=== PATIENT | male | born 1975 | race Caucasian/White ===

== ENCOUNTER 2024-02-12 18:10 | Emergency (ER) | payer OTHER ==
--- NOTE | 2024-02-12 18:36 | ED ---
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 which never he never grew out of and he continues to smoke or to stay underlying COPD with shortness of breath Patient ran out of his rescue inhaler when he began to have exact exacerbation today Patient improved on arrival to the ER MD Complaint: shortness of breath, cough, "asthma attack" -: hour(s) Severity: moderate Severity scale (1-10): 7 Consistency: constant, now resolved, other (Improved) Improves With: bronchodilators (EMS) Worsens With: exertion Known History Of: COPD, asthma Context: recent URI, anxiety, recent illness Associated Symptoms: denies other symptoms - Related Data Home Medications Medication Instructions Recorded Confirmed diazePAM [Valium] 5 mg PO QID 10/27/14 01/01/15 oxyCODONE-APAP 5-325MG [Percocet 1 each PO Q6HR PRN 10/27/14 01/01/15 5-325] Previous Rx's Medication Instructions Recorded Hydrocodone/Acetaminophen [[place] 1 each PO Q6HR PRN #10 tab 10/27/14 5-325] methylPREDNISolone [Medrol] 1 pack PO DIRECTED #1 tab.ds.pk 10/27/14 Amoxicillin/Potassium Clav 1 each PO Q12HR #20 tab 01/01/15 [Augmentin 875-125 Tablet] Allergies Allergy/AdvReac Type Severity Reaction Status Date / Time ketorolac tromethamine Allergy Rash/Hives Verified 02/12/24 18:34 [From Toradol] kiwi Allergy Anaphylaxis Verified 02/12/24 18:34 prochlorperazine edisylate Allergy Unknown Verified 02/12/24 18:34 [From Compazine] prochlorperazine maleate Allergy Unknown Verified 02/12/24 18:34 [From Compazine] Review of Systems ROS Statement: Those systems with pertinent positive or pertinent negative responses have been documented in the HPI. ROS Other: All systems not noted in ROS Statement are negative. Past Medical History Past Medical History: Seizure Disorder Additional Past Medical History / Comment(s): blood clots in bilateral arms (2008 and 2006) brain tumor, migraines, neck pain History of Any Multi-Drug Resistant Organisms: None Reported Past Surgical History: No Surgical Hx Reported Additional Past Surgical History / Comment(s): Patient states he had surgery to both of his thumbs Past Anesthesia/Blood Transfusion Reactions: No Reported Reaction Past Psychological History: ADD/ADHD, Anxiety, Bipolar, Depression Smoking Status: Current every day smoker Past Alcohol Use History: None Reported Past Drug Use History: Marijuana - Past Family History Father Family Medical History: Hypertension Mother Additional Family Medical History / Comment(s): Bipolar Sister(s) Additional Family Medical History / Comment(s): Blood clots. General Exam General appearance: alert, in no apparent distress Head exam: Present: atraumatic, normocephalic, normal inspection Eye exam: Present: normal appearance, PERRL, EOMI. Absent: scleral icterus, conjunctival injection, periorbital swelling ENT exam: Present: normal exam, mucous membranes moist Neck exam: Present: normal inspection. Absent: tenderness, meningismus, lymphadenopathy Respiratory exam: Present: normal lung sounds bilaterally. Absent: respiratory distress, wheezes, rales, rhonchi, stridor Cardiovascular Exam: Present: regular rate, normal rhythm, normal heart sounds. Absent: systolic murmur, diastolic murmur, rubs, gallop, clicks GI/Abdominal exam: Present: soft, normal bowel sounds. Absent: distended, tenderness, guarding, rebound, rigid Extremities exam: Present: normal inspection, full ROM, normal capillary refill. Absent: tenderness, pedal edema, joint swelling, calf tenderness Back exam: Present: normal inspection Neurological exam: Present: alert, oriented X3, CN II-XII intact Psychiatric exam: Present: normal affect, normal mood Skin exam: Present: warm, dry, intact, normal color. Absent: rash Course Vital Signs 02/12/24 02/12/24 18:11 18:50 Temperature 97.4 F L Pulse Rate 80 86 Respiratory 18 Rate Blood Pressure 98/78 O2 Sat by Pulse 96 Oximetry - Reevaluation(s) Reevaluation #1: 02/12/24 19:00 Medical records reviewed Reevaluation #2: 02/12/24 19:00 Patient symptoms improved Reevaluation #3: 02/12/24 19:00 Patient informed of results questions answered Reevaluation #4: Was pt. sent in by a medical professional or institution (, JOEY, COLLEGE SPORTS ASSISTANT, urgent care, hospital, or fdc...) When possible be specific @ -no Did you speak to anyone other than the patient for history (EMS, parent, family, police, friend...)? What history was obtained from this source @ -no Did you review nursing and triage notes (agree or disagree)? Why? @ -agree Are old charts reviewed (outside hosp., previous admission, EMS record, old EKG, old radiological studies, urgent care reports/EKG's, fdc records)? Report findings @ -yes Differential Diagnosis (chest pain, altered mental status, abdominal pain women, abdominal pain men, vaginal bleeding, weakness, fever, dyspnea, syncope, headache, dizziness, GI bleed, back pain, seizure, CVA, palpatations, mental health, musculoskeletal)? @ -prior EKG interpreted by me (3pts min.). @ -yes X-rays interpreted by me (1pt min.). @ -yes negative for acute disease CT interpreted by me (1pt min.). @ -no U/S interpreted by me (1pt. min.). @ -no What testing was considered but not performed or refused? (CT, X-rays, U/S, labs)? Why? @ -none What meds were considered but not given or refused? Why? @ -none Did you discuss the management of the patient with other professionals (professionals i.e. , JOEY, COLLEGE SPORTS ASSISTANT, lab, RT, psych nurse, social worker psychiatric, radiological engineer, teacher, weapons officer, field nurse case manager)? Give summary @ -no Was smoking cessation discussed for >3mins.? @ -no Was critical care preformed (if so, how long)? @ -no Were there social determinants of health that impacted care today? How? (Homelessness, low income, unemployed, alcoholism, drug addiction, transportation, low edu. Level, literacy, decrease access to med. care, [facility], rehab)? @ -none Was there de-escalation of care discussed even if they declined (Discuss DNR or withdrawal of care, Hospice)? DNR status @ -no What co-morbidities impacted this encounter? (DM, HTN, Smoking, COPD, CAD, Cancer, CVA, ARF, Chemo, Hep., AIDS, mental health diagnosis, sleep apnea, morbid obesity)? @ -none Was patient admitted / discharged? Hospital course, mention meds given and route, prescriptions, significant lab abnormalities, going to OR and other pertinent info. @ - Undiagnosed new problem with uncertain prognosis? @ -no Drug Therapy requiring intensive monitoring for toxicity (Heparin, Nitro, Insulin, Cardizem)? @ -no Were any procedures done? @ -no Diagnosis/symptom? @ - Acute, or Chronic, or Acute on Chronic? @ -Acute Uncomplicated (without systemic symptoms) or Complicated (systemic symptoms)? @ -Complicated Side effects of treatment? @ -no Exacerbation, Progression, or Severe Exacerbation? @ -exacerbation Poses a threat to life or bodily function? How? (Chest pain, [place], [place], pneumonia, PE, COPD, DKA, ARF, appy, cholecystitis, CVA, Diverticulitis, Homicidal, Suicidal, threat to staff... and all critical care pts) @ -yes Reevaluation #5: Differential Dyspnea: Coronary syndrome, arrhythmia, tamponade, asthma, COPD, pulmonary embolism, pneumonia, pneumothorax, pulmonary effusion, anaphylaxis, diabetic ketoacidosis, flailed chest, pulmonary contusion, diaphragmatic rupture, anemia, neuromuscular, this is not meant to be an all-inclusive list. Medical Decision Making - Medical Decision Making 48 female with asthma exacerbation significant, although much improved with breathing treatments per EMS 2 breathing treatments here in the ER patient given steroids refilled on rescue inhaler and can be discharged home - Radiology Data Radiology results: report reviewed (Chest x-ray is negative for acute disease), image reviewed Disposition Clinical Impression: Acute exacerbation of chronic obstructive pulmonary disease, Asthma with acute exacerbation Disposition: HOME SELF-CARE Condition: Good Instructions (If sedation given, give patient instructions): Asthma (ED), Bronchospasm (ED) Is patient prescribed a controlled substance at d/c from ED?: No Referrals: None,Stated [Primary Care Provider] - 1-2 days Time of Disposition: 19:30
[2024-02-12] MEDS: IPRATROPIUM-ALBUTEROL 3 ML NEB INHALATION STA (18:50)
[2024-02-12] MEDS: DEXAMETHASONE SOD PHOSPHATE 10 MG/ML 1 ML VIAL IM STA (19:41)
[2024-02-12] MEDS: AZITHROMYCIN 500 MG TAB PO STA (19:48)
[2024-02-12] MEDS: predniSONE 50 MG TAB PO STA (19:48)
[2024-02-12] MEDS: MORPHINE SULFATE 2 MG/ML SYRINGE IVP STA (19:50)
[2024-02-12] MEDS: DEXAMETHASONE SOD PHOSPHATE 10 MG/ML 1 ML VIAL IVP STA (19:50)
[2024-02-12] MEDS: SODIUM CHLORIDE 0.9% 500 ML 500 ML IV STA (19:50)
[2024-02-12 19:54] VITALS: TEMP 97.1
--- NOTE | 2024-02-12 20:05 | XR ---
EXAMINATION TYPE: XR chest 1V portable DATE OF EXAM: 02/12/2024 COMPARISON: 12/08/2013 HISTORY: Shortness of breath TECHNIQUE: 2 views of the chest submitted. FINDINGS: There is hyperinflation noted. There is no focal air space opacity, pleural effusion, or pn eumothorax seen. The cardiac silhouette size is within normal limits. The osseous structures are i ntact. IMPRESSION: No acute process. [facility], , 02/12/2024 8:03 PM
[2024-02-12 20:26] VITALS: BP 105/84; PULSE 85; RESP 16
== END 2024-02-12 20:26 | disposition home or self-care (01) ==
LOC: EC 18:10
DX: J44.1 Chronic obstructive pulmonary disease with (acute) exacerbation (principal); F17.200 Nicotine dependence, unspecified, uncomplicated; Z88.8 Allergy status to other drugs, medicaments and biological substances; Z91.018 Allergy to other foods
CPT/HCPCS: 94640; 71045; 99285; 96374; 96375; J1100; J2270; J7512

== ENCOUNTER 2024-02-18 02:32 | Emergency (ER) | payer OTHER ==
--- NOTE | 2024-02-18 02:54 | ED ---
General Adult HPI <Hero Gonzalez - Last Filed: 02/18/24 08:20> - General Source: EMS Mode of arrival: EMS <Silvai Wheeler - Last Filed: 02/26/24 17:16> - General Chief complaint: Shortness of Breath Stated complaint: Difficulty Breathing Time Seen by Provider: 02/18/24 02:37 - History of Present Illness Initial comments: This is a 48 y/o male hx asthma, current smoker, history of prior DVT, tumor, not on anticoagulation presenting for shortness of breath. Patient states that he was here about 5 days ago for similar complaint and did not receive a prescription for rescue inhaler which he feels he needs. Symptoms did briefly improve after recent ED visit however worsened in the last hour. States he is allergic to cockroaches and he has them in his apartment, suspects this is cause of this asthma exacerbation. Of note patient also endorses sharp upper left- sided chest pain. Endorses nonproductive cough, denies sputum production or hemoptysis, denies recent travel surgeries or hospitalizations. Denies fevers, lower extremity swelling. No hx prior [place]. (Silvia) - Related Data Home Medications Medication Instructions Recorded Confirmed diazePAM [Valium] 5 mg PO QID 10/27/14 01/01/15 oxyCODONE-APAP 5-325MG [Percocet 1 each PO Q6HR PRN 10/27/14 01/01/15 5-325] Previous Rx's Medication Instructions Recorded Hydrocodone/Acetaminophen [[place] 1 each PO Q6HR PRN #10 tab 10/27/14 5-325] methylPREDNISolone [Medrol] 1 pack PO DIRECTED #1 tab.ds.pk 10/27/14 Amoxicillin/Potassium Clav 1 each PO Q12HR #20 tab 01/01/15 [Augmentin 875-125 Tablet] Azithromycin [Zithromax] 500 mg PO DAILY #5 tab 02/12/24 predniSONE 50 mg PO DAILY #5 tab 02/12/24 Albuterol Sulfate [Ventolin HFA] 1 - 2 puff INHALATION Q6H PRN 30 02/18/24 Days #1 each predniSONE [Deltasone] 40 mg PO DAILY 5 Days #8 tab 02/18/24 Allergies Allergy/AdvReac Type Severity Reaction Status Date / Time ketorolac tromethamine Allergy Rash/Hives Verified 02/18/24 02:34 [From Toradol] kiwi Allergy Anaphylaxis Verified 02/18/24 02:34 prochlorperazine edisylate Allergy Unknown Verified 02/18/24 02:34 [From Compazine] prochlorperazine maleate Allergy Unknown Verified 02/18/24 02:34 [From Compazine] Review of Systems ROS Other: All systems not noted in ROS Statement are negative. <Hero Gonzalez - Last Filed: 02/18/24 08:20> ROS Other: All systems not noted in ROS Statement are negative. <Silvia Wheeler - Last Filed: 02/26/24 17:16> ROS Statement: Those systems with pertinent positive or pertinent negative responses have been documented in the HPI. Past Medical History Past Medical History: Seizure Disorder Additional Past Medical History / Comment(s): blood clots in bilateral arms (2008 and 2006) brain tumor, migraines, neck pain History of Any Multi-Drug Resistant Organisms: None Reported Past Surgical History: No Surgical Hx Reported Additional Past Surgical History / Comment(s): Patient states he had surgery to both of his thumbs Past Anesthesia/Blood Transfusion Reactions: No Reported Reaction Past Psychological History: ADD/ADHD, Anxiety, Bipolar, Depression Smoking Status: Current every day smoker Past Alcohol Use History: None Reported, Occasional Past Drug Use History: Marijuana - Past Family History Father Family Medical History: Hypertension Mother Additional Family Medical History / Comment(s): Bipolar Sister(s) Additional Family Medical History / Comment(s): Blood clots. <Silvia Wheeler - Last Filed: 02/26/24 17:16> General Exam <Silvia Wheeler - Last Filed: 02/26/24 17:16> - General Exam Comments Initial Comments: PE: CONSTITUTIONAL: Mild distress secondary to difficulty in breathing, mildly ill- appearing, awake alert and nontoxic SKIN: Warm, dry, no jaundice, hives or petechiae EYES: Pupils are equally round, extraocular movements intact without nystagmus, clear conjunctiva, non-icteric sclera HENT: Normocephalic, atraumatic, moist mucus membranes, oropharynx clear without exudates NECK: , Full range of motion, normal appearance PULMONARY: Decreased air movement in the bilateral lung vega, scant wheezes in the periphery, no rhonchi rales or crackles, no accessory muscle use or stridor, mild tachypnea CARDIOVASCULAR: Tachycardia, regular rhythm, normal S1 and S2. No appreciated m urmurs, rubs or gallops. Strong radial pulses with intact distal perfusion. No lower extremity edema GASTROINTESTINAL: Soft, active bowel sounds throughout, non-tender, non- distended, no palpable masses, no rebound or guarding. No hepatosplenomegaly MUSCULOSKELETAL: Extremities have no gross deformity, no edema, redness, or swelling. No calf swelling NEUROLOGIC:_a/o x 3, GCS 15, normal mentation and speech. Moves all extremities x 4 without motor or sensory deficit PSYCHIATRIC:_normal mood and affect, thought process is clear and linear (Silvia Wheeler) Course <Hero Gonzalez - Last Filed: 02/18/24 08:20> Vital Signs 02/18/24 02/18/24 02/18/24 02:34 02:42 03:12 Temperature 98.7 F Pulse Rate 96 93 Respiratory 18 18 Rate Blood Pressure 104/65 O2 Sat by Pulse 98 Oximetry 02/18/24 02/18/24 02/18/24 03:49 04:13 05:39 Temperature Pulse Rate 89 98 92 Respiratory 17 Rate Blood Pressure 106/62 O2 Sat by Pulse 98 Oximetry 02/18/24 02/18/24 02/18/24 07:00 07:34 07:56 Temperature 97.8 F Pulse Rate 82 85 90 Respiratory 17 16 16 Rate Blood Pressure 107/65 107/65 O2 Sat by Pulse 98 97 Oximetry 02/18/24 08:38 Temperature 97 F L Pulse Rate 88 Respiratory 16 Rate Blood Pressure 104/71 O2 Sat by Pulse 99 Oximetry - Reevaluation(s) Reevaluation #1: 02/18/24 08:20 2 reevaluated after signout, patient states that he is feeling significantly improved. He is eager for discharge. He has good air entry bilaterally with stable vitals. No respiratory distress. (Hero Gonzalez) EKG Findings - EKG Comments: EKG Findings:: Sinus rhythm, rate 92 bpm, MA interval 137 ms, QRS duration 110 ms, QT/QTc 376/426 ms, normal axis, no ST elevations or depressions, no arrhythmia, no Brugada pattern, no delta waves <Silvia Wheeler - Last Filed: 02/26/24 17:16> Medical Decision Making - Lab Data Result diagrams: 02/18/24 02:54 02/18/24 02:54 <Hero Gonzalez - Last Filed: 02/18/24 08:20> - Lab Data Result diagrams: 02/18/24 02:54 02/18/24 02:54 <Silvia Wheeler - Last Filed: 02/26/24 17:16> - Medical Decision Making Was pt. sent in by a medical professional or institution (, PA, SUPPORT DBA, urgent care, hospital, or usp...) When possible be specific @ -No Did you speak to anyone other than the patient for history (EMS, parent, family, police, friend...)? What history was obtained from this source @ -No Did you review nursing and triage notes (agree or disagree)? Why? @ -I reviewed and agree with nursing and triage notes Were old charts reviewed (outside hosp., previous admission, EMS record, old EKG, old radiological studies, urgent care reports/EKG's, usp records)? Report findings Medical records reviewed, patient here on 02/12/2024 for similar complaint, discharged on steroids Differential Diagnosis (chest pain, altered mental status, abdominal pain women, abdominal pain men, vaginal bleeding, weakness, fever, dyspnea, syncope, headache, dizziness, GI bleed, back pain, seizure, CVA, palpatations, mental health, musculoskeletal)? @Differential Dyspnea: Coronary syndrome, arrhythmia, tamponade, asthma, COPD, pulmonary embolism, pneumonia, pneumothorax, pulmonary effusion, anemia, neuromuscular, this is not meant to be an all-inclusive list. EKG interpreted by me (3pts min.). @ -As above X-rays interpreted by me (1pt min.). @ -None done CT interpreted by me (1pt min.). @ -No visible PE, no consolidations or pleural effusions U/S interpreted by me (1pt. min.). @ -None done What testing was considered but not performed or refused? (CT, X-rays, U/S, labs)? Why? @ -None What meds were considered but not given or refused? Why? @ -None Did you discuss the management of the patient with other professionals (professionals i.e. , PA, SUPPORT DBA, lab, RT, psych nurse, marriage and family social worker, department clinician, teacher, resident medical officer, case briefer)? Give summary @ -No Was smoking cessation discussed for >3mins.? @yes Was critical care preformed (if so, how long)? @ yes 35 minutes Were there social determinants of health that impacted care today? How? (Homelessness, low income, unemployed, alcoholism, drug addiction, transportation, low edu. Level, literacy, decrease access to med. care, long term, rehab)? @Decreased access to medical care Was there de-escalation of care discussed even if they declined (Discuss DNR or withdrawal of care, Hospice)? @ -No What co-morbidities impacted this encounter? (DM, HTN, Smoking, COPD, CAD, Cancer, CVA, ARF, Chemo, Hep., AIDS, mental health diagnosis, sleep apnea, morbid obesity)? Asthma, prior DVT, smoker Was patient admitted / discharged? Hospital course, mention meds given and route, prescriptions, significant lab abnormalities, going to OR and other pertinent info. @ -Signed out to oncoming physician, Dr. Gonzalez pending final nebulizer treatment and reassessment- Patient is a 48-year-old male with past medical history of asthma, prior DVT not on anticoagulation, brain tumor, presenting today for shortness of breath recently exacerbated in the last hour. Patient mildly tachypneic on arrival in mild distress secondary to tachypnea nontoxic-appearing. Decreased air movement the bilateral lung vega with scant wheezes in the periphery. Patient's exam is most consistent with asthma exacerbation secondary to known trigger and decreased access to medical care preventing him from having an inhaler. He also notes sharp left upper left sided CP. Due to history of prior DVT and Well's score >4, I will obtain a CT PE study and comprehensive labs at this time patient will receive [id number] nebulizer treatments Toradol and Tylenol for his chest pain. Patient agreeable plan of care. On reassessment patient endorses improvement in his shortness of breath, improved aeration bilaterally but still with some wheezes. Ordered additional nebulizer to be performed prior to d/c. CP improved with above mediciations. Labs overall reassuring. CT PE study showed no central or lobar pulmonary embolus but evaluation of segmental and subsegmental pulmonary artery branches are limited by suboptimal contrast opacification, no consolidations, pleural effusion pulmonary edema and mild emphysematous changes. As patient's exam is most consistent with asthma exacerbation and he has no signs of right heart strain on labs or imaging, pain and shortness of breath improved with the above interventions IV very low suspicion for PE at this time and anticipate discharge. Updated patient to findings and plan of care. Patient is agreeable plan. Patient signed out to oncoming physician pending repeat nebulizer treatment and reassessment. Prescriptions have been sent for a rescue inhaler and prednisone to patient's pharmacy. Undiagnosed new problem with uncertain prognosis? @ -No Drug Therapy requiring intensive monitoring for toxicity (Heparin, Nitro, Insulin, Cardizem)? @ -No Were any procedures done? @ -No Diagnosis/symptom? @ -Asthma exacerbation Acute, or Chronic, or Acute on Chronic? @Acute Uncomplicated (without systemic symptoms) or Complicated (systemic symptoms)? @Complicated Side effects of treatment? @ -No Exacerbation, Progression, or Severe Exacerbation? @ -No Poses a threat to life or bodily function? How? (Chest pain, [place], [place], pneumonia, PE, COPD, DKA, ARF, appy, cholecystitis, CVA, Diverticulitis, Homicidal, Suicidal, threat to staff... and all critical care pts) @ -Yes, if left untreated could lead to acute respiratory failure (Silvia Wheeler) - Lab Data Lab Results 02/18/24 02/18/24 02/18/24 Range/Units 02:54 02:54 02:54 WBC 8.4 (3.8-10.6) k/uL RBC 5.44 (4.30-5.90) m/uL Hgb 15.8 (13.0-17.5) gm/dL Hct 50.1 (39.0-53.0) % MCV 92.2 (80.0-100.0) fL MCH 29.1 (25.0-35.0) pg MCHC 31.6 (31.0-37.0) g/dL RDW 12.6 (11.5-15.5) % Plt Count 336 (150-450) k/uL MPV 7.0 Neutrophils % 36 % Lymphocytes % 51 % Monocytes % 5 % Eosinophils % 5 % Basophils % 1 % Neutrophils # 3.0 (1.3-7.7) k/uL Lymphocytes # 4.3 (1.0-4.8) k/uL Monocytes # 0.5 (0-1.0) k/uL Eosinophils # 0.4 (0-0.7) k/uL Basophils # 0.1 (0-0.2) k/uL PT 12.1 (10.0-12.5) sec INR 1.1 (<1.2) APTT 22.8 (22.0-30.0) sec Sodium 141 (137-145) mmol/L Potassium 4.5 (3.5-5.1) mmol/L Chloride 106 (98-107) mmol/L Carbon Dioxide 29 (22-30) mmol/L Anion Gap 6 mmol/L BUN 23 H (9-20) mg/dL Creatinine 0.80 (0.66-1.25) mg/dL Est GFR (CKD-EPI)AfAm >90 (>60 ml/min/1.73 sqM) Est GFR (CKD-EPI)NonAf >90 (>60 ml/min/1.73 sqM) Glucose 87 (74-99) mg/dL Calcium 9.2 (8.4-10.2) mg/dL Magnesium 2.1 (1.6-2.3) mg/dL Total Bilirubin 0.7 (0.2-1.3) mg/dL AST 31 (17-59) U/L ALT 24 (4-49) U/L Alkaline Phosphatase 67 (38-126) U/L Troponin I (0.000-0.034) ng/mL NT-Pro-B Natriuret Pep <20 pg/mL Total Protein 7.9 (6.3-8.2) g/dL Albumin 4.5 (3.5-5.0) g/dL Influenza Type A (PCR) (Not Detectd) Influenza Type B (PCR) (Not Detectd) RSV (PCR) (Not Detectd) SARS-CoV-2 (PCR) (Not Detectd) 02/18/24 02/18/24 Range/Units 02:54 03:55 WBC (3.8-10.6) k/uL RBC (4.30-5.90) m/uL Hgb (13.0-17.5) gm/dL Hct (39.0-53.0) % MCV (80.0-100.0) fL MCH (25.0-35.0) pg MCHC (31.0-37.0) g/dL RDW (11.5-15.5) % Plt Count (150-450) k/uL MPV Neutrophils % % Lymphocytes % % Monocytes % % Eosinophils % % Basophils % % Neutrophils # (1.3-7.7) k/uL Lymphocytes # (1.0-4.8) k/uL Monocytes # (0-1.0) k/uL Eosinophils # (0-0.7) k/uL Basophils # (0-0.2) k/uL PT (10.0-12.5) sec INR (<1.2) APTT (22.0-30.0) sec Sodium (137-145) mmol/L Potassium (3.5-5.1) mmol/L Chloride (98-107) mmol/L Carbon Dioxide (22-30) mmol/L Anion Gap mmol/L BUN (9-20) mg/dL Creatinine (0.66-1.25) mg/dL Est GFR (CKD-EPI)AfAm (>60 ml/min/1.73 sqM) Est GFR (CKD-EPI)NonAf (>60 ml/min/1.73 sqM) Glucose (74-99) mg/dL Calcium (8.4-10.2) mg/dL Magnesium (1.6-2.3) mg/dL Total Bilirubin (0.2-1.3) mg/dL AST (17-59) U/L ALT (4-49) U/L Alkaline Phosphatase (38-126) U/L Troponin I 0.018 (0.000-0.034) ng/mL NT-Pro-B Natriuret Pep pg/mL Total Protein (6.3-8.2) g/dL Albumin (3.5-5.0) g/dL Influenza Type A (PCR) Not Detected (Not Detectd) Influenza Type B (PCR) Not Detected (Not Detectd) RSV (PCR) Not Detected (Not Detectd) SARS-CoV-2 (PCR) Not Detected (Not Detectd) Disposition <Hero Gonzalez - Last Filed: 02/18/24 08:20> Is patient prescribed a controlled substance at d/c from ED?: No <Silvia Wheeler - Last Filed: 02/26/24 17:16> Clinical Impression: Asthma exacerbation Disposition: HOME SELF-CARE Condition: Good Instructions (If sedation given, give patient instructions): Asthma (ED) Prescriptions: predniSONE [Deltasone] 40 mg PO DAILY 5 Days #8 tab Albuterol Sulfate [Ventolin HFA] 1 - 2 puff INHALATION Q6H PRN 30 Days #1 each PRN Reason: Wheezing Referrals: None,Stated [Primary Care Provider] - 1-2 days
[2024-02-18 03:11] LABS: Basophils # (A) 0.1 k/uL (0-0.2); Basophils % (A) 1 %; Eosinophils # (A) 0.4 k/uL (0-0.7); Eosinophils % (A) 5 %; HCT 50.1 % (39.0-53.0); HGB 15.8 gm/dL (13.0-17.5); Lymphocytes # (A) 4.3 k/uL (1.0-4.8); Lymphocytes % (A) 51 %; MCH 29.1 pg (25.0-35.0); MCHC 31.6 g/dL (31.0-37.0); MCV 92.2 fL (80.0-100.0); Monocytes # (A) 0.5 k/uL (0-1.0); Monocytes % (A) 5 %; Neutrophils % (A) 36 %; Platelet Count 336 k/uL (150-450); RBC 5.44 m/uL (4.30-5.90); RDW 12.6 % (11.5-15.5); WBC 8.4 k/uL (3.8-10.6)
[2024-02-18] MEDS: IPRATROPIUM 0.5 MG/2.5 ML NEBU INHALATION STA (03:11)
[2024-02-18] MEDS: ALBUTEROL NEBULIZED 2.5 MG/3 ML INHALATION STA ×2 (03:11→07:56)
[2024-02-18] MEDS: SODIUM CHLORIDE 0.9% 1,000 ML IV STA (03:12)
[2024-02-18] MEDS: methylPREDNISolone SOD SUCCI 125 MG/2 ML VIAL IV STA (03:13)
[2024-02-18] MEDS: diphenhydrAMINE 50 MG/ML 1 ML VIAL IVP STA (03:13)
[2024-02-18] MEDS: IBUPROFEN 200 MG TAB PO STA (03:13)
[2024-02-18] MEDS: ACETAMINOPHEN TAB 500 MG TAB PO STA (03:14)
[2024-02-18 03:22] LABS: ALT 24 U/L (4-49); African American GFR (CKD) >90 (>60 ml/min/1.73 sqM); Albumin 4.5 g/dL (3.5-5.0); Anion Gap 6 mmol/L; Blood Urea Nitrogen 23 mg/dL (9-20); Calcium 9.2 mg/dL (8.4-10.2); Carbon Dioxide 29 mmol/L (22-30); Chloride 106 mmol/L (98-107); Glucose 87 mg/dL (74-99); Non-African American GFR(CKD) >90 (>60 ml/min/1.73 sqM); Sodium 141 mmol/L (137-145); Total Bilirubin 0.7 mg/dL (0.2-1.3); Total Protein 7.9 g/dL (6.3-8.2)
[2024-02-18 03:23] LABS: AST 31 U/L (17-59); Alkaline Phosphatase 67 U/L (38-126); Magnesium 2.1 mg/dL (1.6-2.3); Potassium 4.5 mmol/L (3.5-5.1)
[2024-02-18 03:24] LABS: INR 1.1 (<1.2); Partial Thromboplastin Time 22.8 sec (22.0-30.0); Prothrombin Time 12.1 sec (10.0-12.5)
[2024-02-18 03:31] LABS: NT-Pro-B-Type Natriuretic Pept <20 pg/mL
--- NOTE | 2024-02-18 06:26 | CT ---
EXAM: CT Angiography Chest With Intravenous Contrast CLINICAL HISTORY: Protein C deficiency. Prior pulmonary emboli. Presents with right lung pain. TECHNIQUE: Axial computed tomographic angiography images of the chest with intravenous contrast. CTDI is 15.8 mGy and DLP is 245.8 mGy-cm. This CT exam was performed using one or more of the following dose reduction techniques: automated exposure control, adjustment of the mA and/or kV according to patient size, and/or use of iterative reconstruction technique. MIP reconstructed images were created and reviewed. COMPARISON: No relevant prior studies available. FINDINGS: Pulmonary arteries: Evaluation of segmental and subsegmental pulmonary artery branches limited by suboptimal contrast opacification. No central or lobar pulmonary embolus. Aorta: No acute findings. No thoracic aortic aneurysm or dissection. Lungs: Mild emphysematous changes. No airspace consolidation or pulmonary edema. Minimal scarring or atelectasis seen in both lung bases. Pleural space: Unremarkable. No significant effusion. No pneumothorax. Heart: Unremarkable. No cardiomegaly. No significant pericardial effusion. No evidence of RV dysfunction. Bones/joints: No acute fracture. No dislocation. Soft tissues: Unremarkable. Lymph nodes: Unremarkable. No enlarged lymph nodes. IMPRESSION: No central or lobar pulmonary embolus. Evaluation of segmental and subsegmental pulmonary artery branches limited by suboptimal contrast opacification. No evidence of airspace consolidation, pulmonary edema, pleural effusion or pneumothorax. Mild emphysematous changes.
[2024-02-18 07:34] VITALS: RESP 16
[2024-02-18] MEDS: traMADol 50 MG TAB PO STA (07:34)
[2024-02-18] MEDS: IPRATROPIUM-ALBUTEROL 3 ML NEB INHALATION STA (07:56)
[2024-02-18 08:39] VITALS: BP 104/71; PULSE 88; TEMP 97
== END 2024-02-18 08:41 | disposition home or self-care (01) ==
LOC: EC 02:32
DX: J45.901 Unspecified asthma with (acute) exacerbation (principal); F17.200 Nicotine dependence, unspecified, uncomplicated; Z88.6 Allergy status to analgesic agent; Z88.8 Allergy status to other drugs, medicaments and biological substances; Z91.018 Allergy to other foods
CPT/HCPCS: 36415; 94640; 94644; 93005; 83880; 80053; 83735; 84484; 85025; 85610; 85730; 87636; 71275; 99291; 96374; 96375; 96361; J1200; Q9967; J2919

== ENCOUNTER 2024-04-23 02:58 | Observation (INO) | payer OTHER ==
[2024-04-23] MEDS: ALBUTEROL NEBULIZED 2.5 MG/3 ML INHALATION STA (03:19)
[2024-04-23 03:47] LABS: Basophils # (A) 0.1 k/uL (0-0.2); Basophils % (A) 1 %; Eosinophils # (A) 0.5 k/uL (0-0.7); Eosinophils % (A) 5 %; HCT 44.8 % (39.0-53.0); HGB 14.8 gm/dL (13.0-17.5); Lymphocytes # (A) 2.1 k/uL (1.0-4.8); Lymphocytes % (A) 18 %; MCH 30.1 pg (25.0-35.0); MCHC 33.1 g/dL (31.0-37.0); MCV 90.8 fL (80.0-100.0); Mean Platelet Volume 7.1; Monocytes # (A) 0.6 k/uL (0-1.0); Monocytes % (A) 5 %; Neutrophils # (A) 8.1 k/uL (1.3-7.7); Neutrophils % (A) 70 %; Platelet Count 377 k/uL (150-450); RBC 4.93 m/uL (4.30-5.90); RDW 13.9 % (11.5-15.5); WBC 11.5 k/uL (3.8-10.6)
[2024-04-23 03:55] LABS: ALT 26 U/L (4-49); AST 28 U/L (17-59); African American GFR (CKD) >90 (>60 ml/min/1.73 sqM); Albumin 4.4 g/dL (3.5-5.0); Alkaline Phosphatase 70 U/L (38-126); Anion Gap 9 mmol/L; Blood Urea Nitrogen 21 mg/dL (9-20); Calcium 9.2 mg/dL (8.4-10.2); Carbon Dioxide 24 mmol/L (22-30); Chloride 105 mmol/L (98-107); Glucose 116 mg/dL (74-99); Non-African American GFR(CKD) >90 (>60 ml/min/1.73 sqM); Sodium 138 mmol/L (137-145); Total Bilirubin 0.5 mg/dL (0.2-1.3); Total Protein 7.4 g/dL (6.3-8.2)
[2024-04-23 04:14] LABS: Potassium 4.6 mmol/L (3.5-5.1)
[2024-04-23] MEDS ORDERED: NALOXONE 0.4 MG/ML 1 ML VIAL IVP PRN ×2 (04:51→10:36)
--- NOTE | 2024-04-23 07:18 | P.CNPUL ---
History of Present Illness Consult date: 04/23/24 Requesting physician: Russell Heller Reason for consult: asthma Chief complaint: Shortness of breath, wheezing History of present illness: Patient is a 48-year-old male with past medical history significant for chronic bronchial asthma, protein C deficiency, seizure disorder, chronic tobacco smo ker, chronic marijuana smoker. Patient does not have an established primary care provider. States has had asthma all his life, has not has been needed albuterol rescue inhaler, as well as, albuterol nebulized treatments at home. Has had a few ER visits in January for asthma exacerbation. Patient present to the emergency department very late last night complaining of severe shortness of breath over the last 2 days. He has been wheezing and has had chest tightness. Denies any infectious symptoms, however, he lives with his father who is recently diagnosed with pneumonia. Denies any fevers, chills. Cough is mostly dry and nonproductive. No nausea, vomiting, diarrhea. He does smoke cigarettes approximately 5 cigs/day. Also, smokes marijuana with his dad daily. Tried to use his rescue inhaler several times at home without much relief. Workup in the emergency department included a chest x-ray showing marked hyperinflation and flattening of the diaphragm. No focal infiltrates or evidence of pneumonia. Viral screen negative for influenza, RSV, COVID. CBC: WBC count 11.5, hemoglobin 14.8, hematocrit 44.8, platelets 377. CMP is unremarkable, electrolytes WDL, creatinine 0.87, glucose 116. Lactic low at 1.6. Troponin less than 0.012. Patient does have a history of protein C deficiency and his D- dimer was nonelevated at 0.27. Patient was admitted with a diagnosis of acute asthma exacerbation.Current vital signs temperature 98.4, heart rate 100 bpm, blood pressure 123/87 mmHg, nontachypneic, SpO2 is reading 96% on 2 L/min nasal cannula. Review of Systems REVIEW OF SYSTEMS: CONSTITUTIONAL: Denies any recent significant weight loss or weight gain. EYES: Denies change in vision. EARS, NOSE, MOUTH, THROAT: Denies headaches, denies sore throat. CARDIOVASCULAR: Denies chest pain, palpitations or syncopal episodes. RESPIRATORY: See HPI. GASTROINTESTINAL: Denies change in appetite, abdominal pain, nausea and vomitin g, or diarrhea GENITOURINARY: Denies hematuria, denies infections. MUSKULOSKELETAL: Denies pain, denies swelling. INTEGUMENTARY: Denies rash, denies eczema. NEUROLOGICAL: Denies recent memory loss, no recent seizure activity. PSYCHIATRIC: Denies anxiety, denies depression. HEMATOLOGIC/LYMPHATIC: Denies anemia, denies enlarged lymph node Past Medical History Past Medical History: Asthma, Seizure Disorder Additional Past Medical History / Comment(s): blood clots in bilateral arms (2008 and 2006) brain tumor, migraines, neck pain History of Any Multi-Drug Resistant Organisms: None Reported Past Surgical History: No Surgical Hx Reported Additional Past Surgical History / Comment(s): Patient states he had surgery to both of his thumbs Past Anesthesia/Blood Transfusion Reactions: No Reported Reaction Past Psychological History: ADD/ADHD, Anxiety, Bipolar, Depression Smoking Status: Current every day smoker Past Alcohol Use History: None Reported, Occasional Past Drug Use History: Marijuana - Past Family History Father Family Medical History: Hypertension Mother Additional Family Medical History / Comment(s): Bipolar Sister(s) Additional Family Medical History / Comment(s): Blood clots. Medications and Allergies Home Medications Medication Instructions Recorded Confirmed Type Albuterol Inhaler [Ventolin Hfa 2 puff INHALATION RT-Q4H PRN 04/23/24 04/23/24 History Inhaler] Albuterol Nebulized [Ventolin 2.5 mg INHALATION RT-QID PRN 04/23/24 04/23/24 History Nebulized] Allergies Allergy/AdvReac Type Severity Reaction Status Date / Time ketorolac tromethamine Allergy Rash/Hives Verified 04/23/24 07:23 [From Toradol] kiwi Allergy Anaphylaxis Verified 04/23/24 07:23 prochlorperazine edisylate Allergy Unknown Verified 04/23/24 07:23 [From Compazine] prochlorperazine maleate Allergy Unknown Verified 04/23/24 07:23 [From Compazine] Physical Exam Vitals: Vital Signs Temp Pulse Resp BP Pulse Ox 04/23/24 06:39 100 16 123/87 96 04/23/24 04:31 99 16 114/88 96 04/23/24 03:28 99 04/23/24 03:20 101 H 04/23/24 03:15 20 04/23/24 03:04 98.8 F 115 H 26 H 155/101 90 L Intake and Output 04/22/24 04/22/24 04/23/24 14:59 22:59 06:59 Other: Weight 63.503 kg GENERAL EXAM: Alert, 48-year-old male, fairly comfortable in no apparent distress. HEAD: Normocephalic and atraumatic EYES: Normal reaction of pupils, equal size. NOSE: Clear with pink turbinates. THROAT: No erythema or exudates. NECK: No masses, no JVD. CHEST: No chest wall deformity. LUNGS: Equal air entry with diffuse bilateral expiratory wheezing throughout. On 2 L/min nasal cannula. No conversational dyspnea or accessory muscle use while at rest CVS: S1 and S2 normal with no audible murmur, regular rhythm. No extra heart sounds ABDOMEN: No hepatosplenomegaly, active bowel sounds, no guarding or rigidity. SPINE: No scoliosis or deformity SKIN: No rashes CENTRAL NERVOUS SYSTEM: No focal deficits, tone is normal in all 4 extremities. EXTREMITIES: There is no peripheral edema, clubbing, or cyanosis. Peripheral pulses are intact. Results - Laboratory Findings CBC and BMP: 04/23/24 03:09 04/23/24 03:09 PT/INR, D-dimer D-Dimer 0.27 mg/L FEU (<0.60) 04/23/24 03:09 Abnormal lab findings: Abnormal Labs 04/23/24 04/23/24 03:09 03:09 WBC 11.5 H Neutrophils # 8.1 H BUN 21 H Glucose 116 H - Diagnostic Findings Chest x-ray: image reviewed Assessment and Plan Assessment: Acute exacerbation of chronic bronchial asthma Acute hypoxemic respiratory failure, currently on 2 L/min nasal cannula History of protein C deficiency History of seizure disorder Chronic ongoing tobacco dependence Chronic marijuana smoker Plan: Currently on supplemental oxygen on 2 L/min nasal cannula Patient's medications, labs, chest x-ray reviewed Chest x-ray shows marked hyperinflation consistent with acute asthma exacerbation, no obvious focal infiltrates or evidence of pneumonia. Viral screen negative for influenza, RSV, COVID D-dimer was low at 0.27 Start patient on a combination of DuoNebs [id number], budesonide inhalation, and IV Solu-Medrol Smoking cessation counseling performed greater than 3 minutes Nicotine patch refused We will continue to follow I have personally seen and examined the patient, performed the documentation and the assessment and plan as written. Number of minutes spent on the visit:20 Joint evaluation was done with the nurse practitioner. This evaluation was done more than 30 minutes. This patient is known to have chronic bronchial asthma the patient is a chronic cigarette and marijuana smoker the patient is coming in for an acute asthma exacerbation. Slightly hypoxic and currently on 2 L of oxygen by nasal cannula with a pulse ox of 97%. Chest x-ray is free of any acute pulmonary filtrates. Viral 4 Plex has been negative. D-dimer is negative. Electrolytes and the rest of his blood work is all within normal limits. Chest x-ray is free of any acute pulmonary filtration. Responding to the bronchodilators. Currently on IV Solu-Medrol. Smoking cessation counseling was done. Will continue to follow. Noted the patient's bronchial asthma has been mild intermittent in nature on outpatient basis.
[2024-04-23] MEDS: IPRATROPIUM-ALBUTEROL 3 ML NEB INHALATION SCH (08:15)
[2024-04-23] MEDS: BUDESONIDE 1 MG/2 ML NEBU INHALATION SCH (08:15)
[2024-04-23] MEDS ORDERED: predniSONE 20 MG TAB PO SCH (09:00)
[2024-04-23] MEDS ORDERED: BENZONATATE 100 MG CAP PO PRN (10:36)
[2024-04-23] MEDS ORDERED: ACETAMINOPHEN TAB 325 MG TAB PO PRN (10:36)
[2024-04-23] MEDS ORDERED: ONDANSETRON 4 MG/2 ML VIAL IVP PRN (10:36)
[2024-04-23] MEDS: NICOTINE 7MG/24HR PATCH TRANSDERM SCH (10:51)
--- NOTE | 2024-04-23 13:02 | P.HPIM ---
History of Present Illness H&P Date: 04/23/24 History of present illness; patient 48-year-old gentleman with past medical history significant for asthma, protein C deficiency, seizure disorder who presented to the ER for shortness of breath. Patient stated he was all right couple of days back started noticing that his breathing was getting hard. Patient was having shortness of breath at rest as on exertion. Patient was actively wheezing. Patient complained of chest tightness. There was no complaint of fever or chills. Patient denies any orthopnea or PND. There is no complaint of swelling of feet. Patient denies any palpitations. Patient admits to smoking and using marijuana as well. Because of shortness of breath, patient presented to the ER Initial lab work done in the ER showed WBC 11.5, hemoglobin 14.8, platelet count 377, D-dimer 0.27, sodium 138, potassium 3.6, BUN 21, creatinine 0.87, calcium 9.2, AST 28, ALT 23, troponin 0.012 EKG done in the ER showed heart rate of 109, no ST segment elevation or depression seen, no T-wave inversions seen. Chest x-ray done in the ER showed no acute pneumonia Patient admitted to internal medicine service REVIEW OF SYSTEMS: CONSTITUTIONAL: No fever, no malaise, no fatigue. HEENT: No recent visual problems or hearing problems. Denied any sore throat. CARDIOVASCULAR: As mentioned above PULMONARY: As mentioned above GASTROINTESTINAL: No diarrhea, no nausea, no vomiting, no abdominal pain. NEUROLOGICAL: No headaches, no weakness, no numbness. HEMATOLOGICAL: Denies any bleeding or petechiae. GENITOURINARY: Denies any burning micturition, frequency, or urgency. MUSCULOSKELETAL/RHEUMATOLOGICAL: Denies any joint pain, swelling, or any muscle pain. ENDOCRINE: Denies any polyuria or polydipsia. The rest of the 14-point review of systems is negative. PHYSICAL EXAMINATION: GENERAL: The patient is alert and oriented x3, short of breath HEENT: Pupils are round and equally reacting to light. EOMI. No scleral icterus. No conjunctival pallor. Normocephalic, atraumatic. No pharyngeal erythema. No thyromegaly. CARDIOVASCULAR: S1 and S2 present. No murmurs, rubs, or gallops. PULMONARY: Diminished breath sounds at bases bilaterally, bilateral expiratory wheeze already ABDOMEN: Soft, nontender, nondistended, normoactive bowel sounds. No palpable organomegaly. MUSCULOSKELETAL: No joint swelling or deformity. EXTREMITIES: No cyanosis, clubbing, or pedal edema. NEUROLOGICAL: Gross neurological examination did not reveal any focal deficits. SKIN: No rashes. Assessment and plan Acute exacerbation of asthma History of protein C deficiency History of seizure disorder Monitor vital signs Monitor CBC Monitor CMP Aggressive bronchopulmonary hygiene Ordered antitussives with Tessalon Perles Ordered mucolytic's with Mucinex Breathing treatments Ordered IV Solu-Medrol Pulmonology consulted Labs and medication were reviewed.. Continue same treatment. Continue with symptomatic treatment. Resume home medication. Monitor labs and vitals. DVT and GI prophylaxis. Further recommendations as per clinical course of the patient Dictation was produced using [email or web address] [email or web address] software. please excuse any grammatical, word or spelling errors. Past Medical History Past Medical History: Asthma, Seizure Disorder Additional Past Medical History / Comment(s): blood clots in bilateral arms ( and 2006) brain tumor, migraines, neck pain History of Any Multi-Drug Resistant Organisms: None Reported Past Surgical History: No Surgical Hx Reported Additional Past Surgical History / Comment(s): Patient states he had surgery to both of his thumbs Past Anesthesia/Blood Transfusion Reactions: No Reported Reaction Past Psychological History: ADD/ADHD, Anxiety, Bipolar, Depression Smoking Status: Current every day smoker Past Alcohol Use History: None Reported, Occasional Past Drug Use History: Marijuana - Past Family History Father Family Medical History: Hypertension Mother Additional Family Medical History / Comment(s): Bipolar Sister(s) Additional Family Medical History / Comment(s): Blood clots. Medications and Allergies Home Medications Medication Instructions Recorded Confirmed Type Albuterol Inhaler [Ventolin Hfa 2 puff INHALATION RT-Q4H PRN 04/23/24 04/23/24 History Inhaler] Albuterol Nebulized [Ventolin 2.5 mg INHALATION RT-QID PRN 04/23/24 04/23/24 History Nebulized] Allergies Allergy/AdvReac Type Severity Reaction Status Date / Time ketorolac tromethamine Allergy Rash/Hives Verified 04/23/24 07:23 [From Toradol] kiwi Allergy Anaphylaxis Verified 04/23/24 07:23 prochlorperazine edisylate Allergy Unknown Verified 04/23/24 07:23 [From Compazine] prochlorperazine maleate Allergy Unknown Verified 04/23/24 07:23 [From Compazine] Physical Exam Vitals: Vital Signs Temp Pulse Pulse Resp BP BP Pulse Ox 04/23/24 07:00 97.5 F L 75 17 118/81 100 04/23/24 06:39 100 16 123/87 96 04/23/24 04:31 99 16 114/88 96 04/23/24 03:28 99 04/23/24 03:20 101 H 04/23/24 03:15 20 04/23/24 03:04 98.8 F 115 H 26 H 155/101 90 L Intake and Output 04/22/24 04/23/24 04/23/24 22:59 06:59 14:59 Other: Weight 63.503 kg Results CBC & Chem 7: 04/23/24 03:09 04/23/24 03:09 Labs: Abnormal Lab Results - Last 24 Hours (Table) 04/23/24 04/23/24 Range/Units 03:09 03:09 WBC 11.5 H (3.8-10.6) k/uL Neutrophils # 8.1 H (1.3-7.7) k/uL BUN 21 H (9-20) mg/dL Glucose 116 H (74-99) mg/dL
[2024-04-23] MEDS: methylPREDNISolone SOD SUCCI 125 MG/2 ML VIAL IV SCH (13:11)
[2024-04-23] MEDS ORDERED: IPRATROPIUM-ALBUTEROL 3 ML NEB INHALATION PRN (15:37)
[2024-04-23] MEDS: guaiFENesin 600 MG TABLET.ER PO SCH (20:47)
[2024-04-24 07:28] VITALS: BP 119/79; RESP 16; TEMP 97.7
[2024-04-24 11:39] VITALS: PULSE 77
--- NOTE | 2024-04-24 12:37 | P.DS ---
Providers Date of admission: 04/23/24 04:52 Expected date of discharge: 04/24/24 Attending physician: Tej Middleton Consults: 04/23/24 04:54 Consult Physician Routine Consulting Provider: Osvaldo Mccurdy Consult Reason/Comments: asthma exacerbation Do you want consulting provider notified?: Yes Primary care physician: Stated None Hospital Course: Discharge diagnoses; Acute exacerbation of asthma History of protein C deficiency History of seizure disorder Tobacco addiction Hospital course; patient 48-year-old gentleman with past medical history significant for asthma, protein C deficiency, seizure disorder who presented to the ER for shortness of breath. Patient stated he was all right couple of days back started noticing that his breathing was getting hard. Patient was having shortness of breath at rest as on exertion. Patient was actively wheezing. Patient complained of chest tightness. There was no complaint of fever or chills. Patient denies any orthopnea or PND. There is no complaint of swelling of feet. Patient denies any palpitations. Patient admits to smoking and using marijuana as well. Because of shortness of breath, patient presented to the ER Initial lab work done in the ER showed WBC 11.5, hemoglobin 14.8, platelet count 377, D-dimer 0.27, sodium 138, potassium 3.6, BUN 21, creatinine 0.87, calcium 9.2, AST 28, ALT 23, troponin 0.012 EKG done in the ER showed heart rate of 109, no ST segment elevation or depression seen, no T-wave inversions seen. Chest x-ray done in the ER showed no acute pneumonia Patient admitted to internal medicine service 04/24. Patient seen and examined. Currently doing much better. Being discharged on tapering dose of prednisone, Symbicort and albuterol PHYSICAL EXAMINATION: GENERAL: The patient is alert and oriented x3, not in any acute distress. Well developed, well nourished. HEENT: Pupils are round and equally reacting to light. EOMI. No scleral icterus. No conjunctival pallor. Normocephalic, atraumatic. No pharyngeal erythema. No thyromegaly. CARDIOVASCULAR: S1 and S2 present. No murmurs, rubs, or gallops. PULMONARY: Chest is clear to auscultation, no wheezing or crackles. ABDOMEN: Soft, nontender, nondistended, normoactive bowel sounds. No palpable organomegaly. MUSCULOSKELETAL: No joint swelling or deformity. EXTREMITIES: No cyanosis, clubbing, or pedal edema. NEUROLOGICAL: Gross neurological examination did not reveal any focal deficits. SKIN: No rashes. Dictation was produced using [employer] dictation software. please excuse any grammatical, word or spelling errors. Plan - Discharge Summary Discharge Rx Participant: Yes New Discharge Prescriptions: New predniSONE 10 mg PO DAILY 8 Days #20 tab Budesonide-Formot 160-4.5 Mcg [Symbicort 160-4.5 Mcg Inhaler] 2 puff INHALATION BID #10.2 gm guaiFENesin [Mucinex] 600 mg PO Q12HR 7 Days #14 tab Continue Albuterol Nebulized [Ventolin Nebulized] 2.5 mg INHALATION RT-QID PRN PRN Reason: Shortness Of Breath Or Wheezing Changed Albuterol Inhaler [Ventolin Hfa Inhaler] 2 puff INHALATION RT-Q4H PRN 30 Days #1 each PRN Reason: Wheezing Discharge Medication List Albuterol Nebulized [Ventolin Nebulized] 2.5 mg INHALATION RT-QID PRN 04/23/24 [History] Albuterol Inhaler [Ventolin Hfa Inhaler] 2 puff INHALATION RT-Q4H PRN 30 Days #1 each 04/24/24 [Rx] Budesonide-Formot 160-4.5 Mcg [Symbicort 160-4.5 Mcg Inhaler] 2 puff INHALATION BID #10.2 gm 04/24/24 [Rx] guaiFENesin [Mucinex] 600 mg PO Q12HR 7 Days #14 tab 04/24/24 [Rx] predniSONE 10 mg PO DAILY 8 Days #20 tab 04/24/24 [Rx] Follow up Appointment(s)/Referral(s): None,Stated [Primary Care Provider] - 1 Week Discharge Disposition: HOME SELF-CARE
--- NOTE | 2024-04-24 14:56 | P.PN ---
Subjective Progress Note Date: 04/24/24 Patient is a 48-year-old male with past medical history significant for chronic bronchial asthma, protein C deficiency, seizure disorder, chronic tobacco smoker, chronic marijuana smoker. Patient does not have an established primary care provider. States has had asthma all his life, has not has been needed albuterol rescue inhaler, as well as, albuterol nebulized treatments at home. Has had a few ER visits in January for asthma exacerbation. Patient present to the emergency department very late last night complaining of severe shortness of breath over the last 2 days. He has been wheezing and has had chest tightness. Denies any infectious symptoms, however, he lives with his father who is recently diagnosed with pneumonia. Denies any fevers, chills. Cough is mostly dry and nonproductive. No nausea, vomiting, diarrhea. He does smoke cigarettes approximately 5 cigs/day. Also, smokes marijuana with his dad daily. Tried to use his rescue inhaler several times at home without much relief. Workup in the emergency department included a chest x-ray showing marked hyperinflation and flattening of the diaphragm. No focal infiltrates or evidence of pneumonia. Viral screen negative for influenza, RSV, COVID. CBC: WBC count 11.5, hemoglobin 14.8, hematocrit 44.8, platelets 377. CMP is unremarkable, electrolytes WDL, creatinine 0.87, glucose 116. Lactic low at 1.6. Troponin less than 0.012. Patient does have a history of protein C deficiency and his D- dimer was nonelevated at 0.27. Patient was admitted with a diagnosis of acute asthma exacerbation.Current vital signs temperature 98.4, heart rate 100 bpm, blood pressure 123/87 mmHg, nontachypneic, SpO2 is reading 96% on 2 L/min nasal cannula. 04/24/2024, the patient is feeling well. No new complaints. Ambulating in the hallway. Less mucus passing and wheezy and ready to go home. D-dimer has been low. Troponins are negative. LFTs are normal. Electrolytes are all within normal limits. He is on room air oxygen. Objective - Vital Signs Vital signs: Vital Signs Temp 97.7 F 04/24/24 07:00 Pulse 77 04/24/24 11:38 Resp 16 04/24/24 11:38 BP 119/79 04/24/24 07:00 Pulse Ox 97 02/01/25 11:32 FiO2 Intake & Output 04/23/24 04/24/24 04/24/24 18:59 06:59 18:59 Intake Total 118 Balance 118 Intake: Oral 118 Other: # Voids 2 3 - Exam GENERAL EXAM: Alert, 48-year-old male, fairly comfortable in no apparent distress. HEAD: Normocephalic and atraumatic EYES: Normal reaction of pupils, equal size. NOSE: Clear with pink turbinates. THROAT: No erythema or exudates. NECK: No masses, no JVD. CHEST: No chest wall deformity. LUNGS: Equal air entry with diffuse bilateral expiratory wheezing throughout. O n 2 L/min nasal cannula. No conversational dyspnea or accessory muscle use while at rest CVS: S1 and S2 normal with no audible murmur, regular rhythm. No extra heart sounds ABDOMEN: No hepatosplenomegaly, active bowel sounds, no guarding or rigidity. SPINE: No scoliosis or deformity SKIN: No rashes CENTRAL NERVOUS SYSTEM: No focal deficits, tone is normal in all 4 extremities. EXTREMITIES: There is no peripheral edema, clubbing, or cyanosis. Peripheral pulses are intact. - Labs CBC & Chem 7: 04/23/24 03:09 04/23/24 03:09 Assessment and Plan Assessment: Acute exacerbation of chronic bronchial asthma Acute hypoxemic respiratory failure, currently on 2 L/min nasal cannula, improved and the patient is currently on room air oxygen History of protein C deficiency History of seizure disorder Chronic ongoing tobacco dependence Chronic marijuana smoker Plan: Clinically stable and improved Discharge home on Symbicort maintenance 2 puffs twice a day 160 mcg Prednisone burst taper starting with 40 mg to be taken by 10 mg every 4 days Albuterol HFA 4 times a day and as needed Oxygenation has improved and the patient is currently on room air oxygen chest x-ray is free of any acute pulmonary filtrates. Viral 4 Plex has been negative. D-dimer is negative. Chest x-ray is free of any acute pulmonary filtration. Smoking cessation counseling was done. Will continue to follow. Will be glad to follow-up on outpatient basis
--- NOTE | 2024-06-14 08:42 | ED ---
General Adult HPI - General Chief complaint: Shortness of Breath Stated complaint: SOB Time Seen by Provider: 04/23/24 03:03 Source: patient Mode of arrival: ambulatory - History of Present Illness Initial comments: Please note that this patient had been seen under . Patient had presented for dyspnea, had initial treatment, then was feeling like he wanted to go home and discharged. The patient reportedly only able to get to the front area of the hospital. Once there he became dyspneic and was brought back to the department, where he had been registered under this account number. I was unaware that the patient had 2 account numbers and dictated the entire visit under the first account number. - Related Data Home Medications Medication Instructions Recorded Confirmed Albuterol Nebulized [Ventolin 2.5 mg INHALATION RT-QID PRN 04/23/24 04/23/24 Nebulized] Previous Rx's Medication Instructions Recorded Albuterol Inhaler [Ventolin Hfa 2 puff INHALATION RT-Q4H PRN 30 04/24/24 Inhaler] Days #1 each Budesonide-Formot 160-4.5 Mcg 2 puff INHALATION BID #10.2 gm 04/24/24 [Symbicort 160-4.5 Mcg Inhaler] guaiFENesin [Mucinex] 600 mg PO Q12HR 7 Days #14 tab 04/24/24 predniSONE 10 mg PO DAILY 8 Days #20 tab 04/24/24 Allergies Allergy/AdvReac Type Severity Reaction Status Date / Time ketorolac tromethamine Allergy Rash/Hives Verified 04/23/24 07:23 [From Toradol] kiwi Allergy Anaphylaxis Verified 04/23/24 07:23 prochlorperazine edisylate Allergy Unknown Verified 04/23/24 07:23 [From Compazine] prochlorperazine maleate Allergy Unknown Verified 04/23/24 07:23 [From Compazine] Review of Systems ROS Statement: Those systems with pertinent positive or pertinent negative responses have been documented in the HPI. ROS Other: All systems not noted in ROS Statement are negative. Past Medical History Past Medical History: Asthma, Seizure Disorder Additional Past Medical History / Comment(s): blood clots in bilateral arms (2008 and 2006) brain tumor, migraines, neck pain History of Any Multi-Drug Resistant Organisms: None Reported Past Surgical History: No Surgical Hx Reported Additional Past Surgical History / Comment(s): Patient states he had surgery to both of his thumbs Past Anesthesia/Blood Transfusion Reactions: No Reported Reaction Past Psychological History: ADD/ADHD, Anxiety, Bipolar, Depression Smoking Status: Current every day smoker Past Alcohol Use History: None Reported, Occasional Past Drug Use History: Marijuana - Past Family History Father Family Medical History: Hypertension Mother Additional Family Medical History / Comment(s): Bipolar Sister(s) Additional Family Medical History / Comment(s): Blood clots. Course Vital Signs 04/23/24 04/23/24 04/23/24 03:04 03:15 03:20 Temperature 98.8 F Pulse Rate 115 H 101 H Pulse Rate [ Pulse Oximetery ] Respiratory 26 H 20 Rate Blood Pressure 155/101 Blood Pressure [Left Arm] O2 Sat by Pulse 90 L Oximetry 04/23/24 04/23/24 04/23/24 03:28 04:31 06:39 Temperature Pulse Rate 99 99 100 Pulse Rate [ Pulse Oximetery ] Respiratory 16 16 Rate Blood Pressure 114/88 123/87 Blood Pressure [Left Arm] O2 Sat by Pulse 96 96 Oximetry 04/23/24 07:00 Temperature 97.5 F L Pulse Rate Pulse Rate [ 75 Pulse Oximetery ] Respiratory 17 Rate Blood Pressure Blood Pressure 118/81 [Left Arm] O2 Sat by Pulse 100 Oximetry Medical Decision Making - Lab Data Result diagrams: 04/23/24 03:09 04/23/24 03:09 Lab Results 04/23/24 04/23/24 04/23/24 Range/Units 03:09 03:09 03:09 WBC 11.5 H (3.8-10.6) k/uL RBC 4.93 (4.30-5.90) m/uL Hgb 14.8 (13.0-17.5) gm/dL Hct 44.8 (39.0-53.0) % MCV 90.8 (80.0-100.0) fL MCH 30.1 (25.0-35.0) pg MCHC 33.1 (31.0-37.0) g/dL RDW 13.9 (11.5-15.5) % Plt Count 377 (150-450) k/uL MPV 7.1 Neutrophils % 70 % Lymphocytes % 18 % Monocytes % 5 % Eosinophils % 5 % Basophils % 1 % Neutrophils # 8.1 H (1.3-7.7) k/uL Lymphocytes # 2.1 (1.0-4.8) k/uL Monocytes # 0.6 (0-1.0) k/uL Eosinophils # 0.5 (0-0.7) k/uL Basophils # 0.1 (0-0.2) k/uL D-Dimer 0.27 (<0.60) mg/L FEU Sodium 138 (137-145) mmol/L Potassium 4.6 (3.5-5.1) mmol/L Chloride 105 (98-107) mmol/L Carbon Dioxide 24 (22-30) mmol/L Anion Gap 9 mmol/L BUN 21 H (9-20) mg/dL Creatinine 0.87 (0.66-1.25) mg/dL Est GFR (CKD-EPI)AfAm >90 (>60 ml/min/1.73 sqM) Est GFR (CKD-EPI)NonAf >90 (>60 ml/min/1.73 sqM) Glucose 116 H (74-99) mg/dL Plasma Lactic Acid Freddy (0.7-2.0) mmol/L Calcium 9.2 (8.4-10.2) mg/dL Total Bilirubin 0.5 (0.2-1.3) mg/dL AST 28 (17-59) U/L ALT 26 (4-49) U/L Alkaline Phosphatase 70 (38-126) U/L Troponin I (0.000-0.034) ng/mL Total Protein 7.4 (6.3-8.2) g/dL Albumin 4.4 (3.5-5.0) g/dL 04/23/24 04/23/24 Range/Units 03:09 03:09 WBC (3.8-10.6) k/uL RBC (4.30-5.90) m/uL Hgb (13.0-17.5) gm/dL Hct (39.0-53.0) % MCV (80.0-100.0) fL MCH (25.0-35.0) pg MCHC (31.0-37.0) g/dL RDW (11.5-15.5) % Plt Count (150-450) k/uL MPV Neutrophils % % Lymphocytes % % Monocytes % % Eosinophils % % Basophils % % Neutrophils # (1.3-7.7) k/uL Lymphocytes # (1.0-4.8) k/uL Monocytes # (0-1.0) k/uL Eosinophils # (0-0.7) k/uL Basophils # (0-0.2) k/uL D-Dimer (<0.60) mg/L FEU Sodium (137-145) mmol/L Potassium (3.5-5.1) mmol/L Chloride (98-107) mmol/L Carbon Dioxide (22-30) mmol/L Anion Gap mmol/L BUN (9-20) mg/dL Creatinine (0.66-1.25) mg/dL Est GFR (CKD-EPI)AfAm (>60 ml/min/1.73 sqM) Est GFR (CKD-EPI)NonAf (>60 ml/min/1.73 sqM) Glucose (74-99) mg/dL Plasma Lactic Acid Freddy 1.6 (0.7-2.0) mmol/L Calcium (8.4-10.2) mg/dL Total Bilirubin (0.2-1.3) mg/dL AST (17-59) U/L ALT (4-49) U/L Alkaline Phosphatase (38-126) U/L Troponin I <0.012 (0.000-0.034) ng/mL Total Protein (6.3-8.2) g/dL Albumin (3.5-5.0) g/dL Disposition Clinical Impression: Dyspnea, Asthma exacerbation Disposition: ADMITTED IP TO THIS HOSP Condition: Fair Is patient prescribed a controlled substance at d/c from ED?: No
== END 2024-04-24 13:16 | disposition home or self-care (01) ==
LOC: EC 02:58 → 6NMEDSUR 04:52
PROVIDERS: ADMIT Hospitalist; ATTEND Hospitalist
DX: J45.901 Unspecified asthma with (acute) exacerbation (principal); J96.01 Acute respiratory failure with hypoxia; G40.909 Epilepsy, unspecified, not intractable, without status epilepticus; D68.59 Other primary thrombophilia; F17.210 Nicotine dependence, cigarettes, uncomplicated; F12.90 Cannabis use, unspecified, uncomplicated; Z79.51 Long term (current) use of inhaled steroids; Z79.52 Long term (current) use of systemic steroids; Z88.5 Allergy status to narcotic agent; Z88.8 Allergy status to other drugs, medicaments and biological substances; Z11.52 Encounter for screening for COVID-19; Z11.59 Encounter for screening for other viral diseases; Z71.6 Tobacco abuse counseling
CPT/HCPCS: 96376 ×2; 96374; 99285; 36415; 94640 ×3; 94760; 85379; 80053; 83605; 84484; 85025; G0378 ×2; J2919 ×2